=== PATIENT | male | born 1945 | race Hispanic/Latino ===

== ENCOUNTER → 2021-03-12 | Outpatient (CLI) | payer OTHER | END | disposition home or self-care (01) | LOC: RAH 09:50 | PROVIDERS: ATTEND Internal Medicine Gastroenterology | DX: R63.4 Abnormal weight loss (principal); I51.7 Cardiomegaly; N20.0 Calculus of kidney; M43.17 Spondylolisthesis, lumbosacral region; M51.36 Other intervertebral disc degeneration, lumbar region | CPT/HCPCS: 74176 ==